=== PATIENT | female | born 1955 | race Caucasian/White ===

== ENCOUNTER 2022-02-19 08:41 | Day surgery (SDC) | payer OTHER, MEDICARE ==
[2022-02-19 10:14] VITALS: RESP 16; TEMP 97.5
[2022-02-19 10:21] VITALS: BP 114/65; PULSE 75
== END 2022-02-19 10:29 | disposition home or self-care (01) ==
LOC: FASU-ENDO 08:41
PROVIDERS: ATTEND Internal Medicine Gastroenterology
PROC: 0DJD8ZZ Inspection of Lower Intestinal Tract, Via Natural or Artificial Opening Endoscopic (ICD-10-PCS; principal; 2022-02-19 09:45)
DX: Z12.11 Encounter for screening for malignant neoplasm of colon (principal); Z86.010 Personal history of colon polyps